=== PATIENT | female | born 1995 | race Caucasian/White ===

== ENCOUNTER 2018-02-11 03:51 | Emergency (ER) | payer MEDICAID, SELFPAY ==
[2018-02-11 03:53] VITALS: BP 101/72; PULSE 104; RESP 16; TEMP 36.5; O2SAT 98; BMI 19.5
--- NOTE | 2018-02-11 04:29 | RAD_ITS ---
STUDY: X-RAY - LEFT HAND REASON FOR EXAM: Female, 22 years old. DRUG USER HAS SKIN REDDNESS AREA OF LT 1ST METACARPAL WITH STREAKING UP WRIST FROM SHOOTING UP A COUPLE DAYS AGO TECHNIQUE: 3 view(s) of the hand. COMPARISON: None. FINDINGS: Normal radiocarpal articulation. Normal distal radioulnar joint. Normal visualized carpal bones. Normal carpal articulations Normal carpometacarpal articulation of the thumb. Normal second through fifth carpometacarpal joints. Normal metacarpi. Normal metacarpophalangeal joint of the thumb. Normal interphalangeal joint of the thumb. Normal proximal and distal phalanges of the thumb. Normal metacarpophalangeal joints of the second through fifth fingers. Normal proximal and distal interphalangeal joints of the second through fifth fingers. Normal phalanges of the second through fifth fingers. The soft tissue structures are unremarkable. RAD/Hand Min 3 Views IMPRESSION: Normal x-ray examination of the hand. Electronically Signed: Marily Sandoval MD at 5:02 EDT Tel , Service support ,
[2018-02-11 05:24] LABS: Absolute Lymphocyte Count 3.57 X10^3/ul (0.83-4.51); Absolute Neutrophil Count 6.1 X10^3/uL (2.0-7.7); Basophil# 0.03 X10^3/uL; Basophil% 0.3 % (0-1); Eosinophil# 0.09 X10^3/uL; Eosinophils% 0.9 % (0-5); Hematocrit 36.7 % (37-47); Hemoglobin 12.1 g/dl (12.0-15.0); Lymphocyte # 3.57 X10^3/ul (4.0); Lymphocyte % 35.1 % (19-41); Mean Corpuscular Hgb 26.9 pg (27.0-32.0); Mean Corpuscular Volume 81.7 fL (81-99); Mean Platelet Vol. 10.8 fl (6.2-12.0); Monocyte# 0.36 X10^3/uL; Monocyte% 3.5 % (0-10); Neutrophil # 6.11 X10^3/uL (2.7-7.7); Platelet Count 203 K/mm3 (150-450); RBC Distribution Width CV 15.3 % (11.6-14.6); RBC Distribution Width SD 45.3 fl (35.1-43.9); Red Blood Count 4.49 M/mm3 (4.2-5.4); White Blood Count 10.2 K/mm3 (4.4-11.0)
[2018-02-11] MEDS: Ketorolac 30 MG/ML Syringe IV (05:24)
[2018-02-11 05:25] LABS: Anion Gap 9 (5-15); BUN 11 mg/dL (7-18); BUN/Creat Ratio 21.4 RATIO (10-20); Calcium,Total 8.7 mg/dL (8.5-10.1); Chloride 106 mmol/L (98-107); Creatinine, Serum 0.51 mg/dL (0.55-1.02); Differential Indicated SCAN CRITERIA MET; EST Glomerular Filtration Rate 162 mL/min (>60); Est Glom Filt Rate - Afr Amer 196 mL/min (>60); Glucose 112 mg/dL (74-106); POSITIVE COUNT NO; POSITIVE DIFFERENTIAL NO; POSITIVE MORPHOLOGY YES; Potassium 3.6 mmol/L (3.5-5.1); Sodium Level 138 mmol/L (136-145)
--- NOTE | 2018-02-11 05:35 | ED.VISSUMM ---
- ER Visit Summary Date of Service: 02/11/18 Chief Complaint: Left hand cellulitis History of Present Illness: The patient is a 22 F increased redness left hand over 2 days. History of IV heroin use. States was in [facility] for 3 months, was out 3 weeks ago. She relapsed. Denies any previous similar symptoms. States redness movement of the hand today. No fevers. No history of diabetes. No chest pains or shortness of breath. No nausea or vomiting. Physical Examination: General: Alert and oriented ?3, no acute distress HEENT: Normocephalic, atraumatic. Moist mucosa membranes Neck: supple, nontender. Cardiovascular: Regular rate and rhythm, no murmurs Respiratory: Normal breath sounds, symmetric, no distress Abdomen: Soft, nontender, nondistended Extremities: Left upper extremity: There is redness dorsal aspect of the first metacarpal. No drainage. Mild streaking up the volar aspect forearm to distal third. Tenderness at the hand. Neuro: no focal neurological deficits. Skin: Track reich bilateral arms. No drainage. Test Results: Left hand x-ray: No acute process. CBC white count 10.2. blood culture ?2 pending. Emergency Department Course and Treatment: Patient nontoxic. Erythema was outlined. Cultures drawn due to IV drug history. There is no murmur on exam. She is nontoxic. White count 10.2. Started on Unasyn. Placed on Augmentin for 10 days. She was given follow-up as an outpatient. Discussed signs and symptoms return. Patient understands and agrees with plan. Treatment Plan: [] Disposition: Discharge Impression: Left hand cellulitis 2. History of IV drug abuse This note was generated with [employer] dictation software. It may contain incorrect words, spelling, and punctuation that were not noted in review of the chart prior to signing ED Disposition - Plan for ED Patient: Disposition: Home or Assisted Living Chief Complaint: Cellulitis Diagnosis: Cellulitis of left hand Instructions: Discharge Instructions for Cellulitis Prescriptions: Amoxicillin/Potassium Clav [Augmentin 875-125 Tablet] 1 each PO BID #20 tablet Referrals: Care Physician,No Primary [Primary Care Provider] - Additional Instructions: Take antibiotic as prescribed. Follow-up with your doctor in the next 2-3 days. Return if any worsening symptoms.
--- NOTE | 2018-02-11 05:42 | ED.DCSUM_ITS ---
- ER Visit Summary Date of Service: 02/11/18 Chief Complaint: Left hand cellulitis History of Present Illness: The patient is a 22 F increased redness left hand over 2 days. History of IV heroin use. States was in assisted for 3 months, was out 3 weeks ago. She relapsed. Denies any previous similar symptoms. States redness movement of the hand today. No fevers. No history of diabetes. No chest pains or shortness of breath. No nausea or vomiting. Physical Examination: General: Alert and oriented ?3, no acute distress HEENT: Normocephalic, atraumatic. Moist mucosa membranes Neck: supple, nontender. Cardiovascular: Regular rate and rhythm, no murmurs Respiratory: Normal breath sounds, symmetric, no distress Abdomen: Soft, nontender, nondistended Extremities: Left upper extremity: There is redness dorsal aspect of the first metacarpal. No drainage. Mild streaking up the volar aspect forearm to distal third. Tenderness at the hand. Neuro: no focal neurological deficits. Skin: Track reich bilateral arms. No drainage. Test Results: Left hand x-ray: No acute process. CBC white count 10.2. blood culture ?2 pending. Emergency Department Course and Treatment: Patient nontoxic. Erythema was outlined. Cultures drawn due to IV drug history. There is no murmur on exam. She is nontoxic. White count 10.2. Started on Unasyn. Placed on Augmentin for 10 days. She was given follow-up as an outpatient. Discussed signs and symptoms return. Patient understands and agrees with plan. Treatment Plan: [] Disposition: Discharge Impression: Left hand cellulitis 2. History of IV drug abuse This note was generated with [employer] dictation software. It may contain incorrect words, spelling, and punctuation that were not noted in review of the chart prior to signing ED Disposition - Plan for ED Patient: Disposition: Home or Assisted Living Chief Complaint: Cellulitis Diagnosis: Cellulitis of left hand Instructions: Discharge Instructions for Cellulitis Prescriptions: Amoxicillin/Potassium Clav [Augmentin 875-125 Tablet] 1 each PO BID #20 tablet Referrals: Care Physician,No Primary [Primary Care Provider] - Additional Instructions: Take antibiotic as prescribed. Follow-up with your doctor in the next 2-3 days. Return if any worsening symptoms.
[2018-02-11 06:23] VITALS: BP 102/60; PULSE 95; RESP 18; O2SAT 96
== END 2018-02-11 06:23 | disposition home or self-care (01) ==
PROVIDERS: Emergency Provider Emergency Medicine
DX: L03.114 Cellulitis of left upper limb (principal); F11.90 Opioid use, unspecified, uncomplicated; Z72.0 Tobacco use
CPT/HCPCS: 73130; 80048; 85025; 87040; 96365; 96375; 99285; J7030; A4216; J0295